=== PATIENT | female | born 1955 | race Caucasian/White ===

== ENCOUNTER 2023-04-01 13:10 | Emergency (ER) | payer OTHER ==
--- OUTSIDE RECORDS SUMMARY | 2023-04-01 13:15 | XMS REPORT | Continuity of Care Document ---
:[address] [facility] t Address [address] [address] Care Team Providers Name Role Phone [email or web address] Attending Clinician Unavailable [email or web address] Admitting Clinician Unavailable Payers Payer Name Policy Type Policy Number Effective Date Expiration Date Summer larson MEDICARE [place]: [id number] 2020 [employer] 00:00:00 Content Syndicate: [employer] [id number] [employer] (MEDICARE SUPPLEMENT) Problems This patient has no known problems. Allergies, Adverse Reactions, Alerts This patient has no known allergies or adverse reactions. Medications This patient has no known medications. Procedures This patient has no known procedures. Encounters Start End Encounter Admission Attending Care Care Encounter Source Date/Time Date/Time Type Type Clinicians Facility Department ID 2022-10-27 2022-10-27 Outpatient YULI_VALENTINOWS PRIV PRIV [id number] [facility] 00:00:00 00:00:00 _aJcy [id number] Medi lan Results This patient has no known results.
[2023-04-01] MEDS ORDERED: NA CHLORIDE 0.9% 1,000 ML ONE ×2 (13:35→16:55)
[2023-04-01 13:38] LABS: Absolute Lymphocytes (CBC) 0.9 K/uL (0.7-4.9); Hematocrit 40.5 % (36.0-45.0); Lymphocytes % 21.3 % (15.3-44.8); MCV 94.3 fL (80-100); MPV 7.9 fL (7.6-11.3); RBC Red Blood Cell Count 4.29 M/uL (3.86-4.86)
--- NOTE | 2023-04-01 13:47 | RAD REPORT ---
EXAM DESCRIPTION: CT - Head Brain Wo Cont - 04/01/2023 1:36 pm CLINICAL HISTORY: HEADACHE Headache, drowsiness COMPARISON: No comparisons TECHNIQUE: All CT scans are performed using dose optimization technique as appropriate and may inclu de automated exposure control or mA/KV adjustment according to patient size. FINDINGS: No intracranial hemorrhage, hydrocephalus or extra-axial fluid collection.Mild brain atrop hy.No areas of brain edema or evidence of midline shift. The paranasal sinuses and mastoids are clear. The calvarium is intact. IMPRESSION: No acute intracranial abnormality.
[2023-04-01 13:48] LABS: Protime INR 0.97
[2023-04-01 13:50] LABS: Specific Gravity 1.006 (1.005-1.030); Urine Bilirubin NEGATIVE (Negative); Urine Blood Negative (Negative); Urine Clarity Clear (Clear); Urine Color Colorless (Yellow); Urine Glucose NEGATIVE (Negative); Urine Protein NEGATIVE (Negative); Urine Urobilinogen Normal (Normal)
[2023-04-01 13:57] LABS: Albumin 3.8 g/dL (3.4-5.0); Bilirubin Direct 0.2 mg/dL (0-0.2); Bilirubin Indirect, Calculated 0.6 mg/dL (0.2-0.8); Bilirubin Total 0.8 mg/dL (0.2-1.0); Magnesium 1.9 mg/dL (1.6-2.4); Potassium 3.8 mEq/L (3.5-5.1); Protein, Total 7.6 g/dL (6.4-8.2); Troponin High Sensitivity 3.4 pg/mL (<58.9)
[2023-04-01] MEDS ORDERED: FOLIC ACID 5 MG/ML VIAL ONE (14:09)
--- NOTE | 2023-04-01 14:22 | RAD REPORT ---
EXAM DESCRIPTION: RAD - Chest Single View - 04/01/2023 2:10 pm CLINICAL HISTORY: CHEST PAIN Chest pain. COMPARISON: No comparisons FINDINGS: Portable technique limits examination quality. The lungs are grossly clear. The heart is normal in size. No displaced fractures. IMPRESSION: No acute intrathoracic process suspected.
--- NOTE | 2023-04-01 15:09 | RAD REPORT ---
EXAM DESCRIPTION: US - Extrem Venous W Compress Agusto - 04/01/2023 3:01 pm CLINICAL HISTORY: PAIN Bilateral leg edema and swelling. COMPARISON: No comparisons TECHNIQUE: Real-time sonographic interrogation of the left and right lower extremity deep venous sys tems was performed. FINDINGS: Normal compressibility, flow augmentation, phasic flow and spontaneous flow is identified in both the left and right lower extremity deep venous systems. IMPRESSION: No sonographic evidence of left or right lower extremity deep venous thrombosis.
--- NOTE | 2023-04-01 15:14 | RAD REPORT ---
EXAM DESCRIPTION: US - CP - 04/01/2023 2:52 pm CLINICAL HISTORY: DIZZINESS Headache, drowsiness COMPARISON: No comparisons TECHNIQUE: Real-time sonographic evaluation of both carotid systems was performed. Doppler interroga tion was performed with waveform tracing bilaterally. FINDINGS: Normal high resistance waveforms are noted in both external carotid arteries. The common c arotid arteries and internal carotid arteries show normal low resistance waveforms. No significant plaque formation is seen. Peak systolic and end diastolic velocity values and the ICA/ CCA ratios are in the non-hemodynamically significant range. Antegrade flow seen in both vertebral arteries. IMPRESSION: No significant atherosclerotic changes noted. No evidence of a hemodynamically significant stenosis.
--- NOTE | 2023-04-01 15:28 | RAD REPORT ---
EXAM DESCRIPTION: CT - Chest For Pe Angio - 04/01/2023 3:11 pm CLINICAL HISTORY: Chest pain. DYSPNEA COMPARISON: No comparisons TECHNIQUE: CT angiogram of the pulmonary arteries was performed with MIP. All CT scans are performed using dose optimization technique as appropriate and may include automated exposure control or mA/KV adjustment according to patient size. FINDINGS: No evidence of pulmonary thromboembolism. No acute aortic finding demonstrated. The lungs are clear. No significant pericardial or pleural fluid. No concerning bony finding. Several low-density left hepatic lesions, largest measuring 17 mm. These are incompletely assessed on this study. Cholecystectomy clips. IMPRESSION: No evidence of pulmonary thromboembolism. No acute lung findings. Indeterminate liver lesions as detailed. Nonemergent MRI liver protocol recommended for follow-up.
--- NOTE | 2023-04-01 16:01 | RAD REPORT ---
EXAM DESCRIPTION: MRI - Brain Wo Cont - 04/01/2023 3:44 pm CLINICAL HISTORY: DIZZINESS Headache, drowsiness COMPARISON: Head Brain Wo Cont dated 04/01/2023 TECHNIQUE: Multi-sequence, multiplanar MR imaging of the brain was performed without contrast. FINDINGS: No intracranial hemorrhage, hydrocephalus or extra-axial fluid collections.Mild periventri cular and deep white matter chronic microvascular ischemic changes. No edema or shift of midline stru ctures. No findings to suspect brain mass. DWI is negative for acute CVA. Midline structures are normally formed. Mastoid air cells and paranasal sinuses are clear. IMPRESSION: Negative for acute CVA or other acute intracranial finding.
--- NOTE | 2023-04-01 16:27 | EDPHYS ---
Physician Documentation [facility] Name: Hailey Agrawal Age: 67 yrs Sex: Female : 1955 Arrival Date: 04/01/2023 Time: 13:10 Bed 19 Private MD: Roland Jay T ED Physician Jerome Martins HPI: 04/01 14:22 This 67 yrs old Female presents to ER via Ambulatory with complaints of angel Dizziness, Headache. 14:22 The patient presents with dizziness, feeling faint, generalized weakness, angel lightheadedness. Historical: - Allergies: 13:23 Morphine; ld1 - Immunization history:: Adult Immunizations up to date. - Social history:: Smoking status: Patient denies any tobacco usage or history of. Patient/guardian denies using alcohol. ROS: 14:23 Constitutional: Negative for fever, chills, and weight loss, Eyes: Negative for injury, angel pain, redness, and discharge, ENT: Negative for injury, pain, and discharge, Neck: Negative for injury, pain, and swelling, Cardiovascular: Negative for chest pain, palpitations, and edema, Abdomen/GI: Negative for abdominal pain, nausea, vomiting, diarrhea, and constipation, Back: Negative for injury and pain, : Negative for injury, bleeding, discharge, and swelling, MS/Extremity: Negative for injury and deformity, Skin: Negative for injury, rash, and discoloration, Psych: Negative for depression, anxiety, suicide ideation, homicidal ideation, and hallucinations, Allergy/Immunology: Negative for hives, rash, and allergies, Endocrine: Negative for neck swelling, polydipsia, polyuria, polyphagia, and marked weight changes, Hematologic/Lymphatic: Negative for swollen nodes, abnormal bleeding, and unusual bruising. 14:23 Respiratory: Positive for cough, shortness of breath, at rest. 14:23 Neuro: Positive for dizziness, weakness. Exam: 14:23 Constitutional: This is a well developed, well nourished patient who is awake, alert, angel and in no acute distress. Head/Face: Normocephalic, atraumatic. Eyes: Pupils equal round and reactive to light, extra-ocular motions intact. Lids and lashes normal. Conjunctiva and sclera are non-icteric and not injected. Cornea within normal limits. Periorbital areas with no swelling, redness, or edema. ENT: Nares patent. No nasal discharge, no septal abnormalities noted. Tympanic membranes are normal and external auditory canals are clear. Oropharynx with no redness, swelling, or masses, exudates, or evidence of obstruction, uvula midline. Mucous membranes moist. Neck: Trachea midline, no thyromegaly or masses palpated, and no cervical lymphadenopathy. Supple, full range of motion without nuchal rigidity, or vertebral point tenderness. No Meningismus. Chest/axilla: Normal chest wall appearance and motion. Nontender with no deformity. No lesions are appreciated. Cardiovascular: Regular rate and rhythm with a normal S1 and S2. No gallops, murmurs, or rubs. Normal PMI, no JVD. No pulse deficits. Respiratory: Lungs have equal breath sounds bilaterally, clear to auscultation and percussion. No rales, rhonchi or wheezes noted. No increased work of breathing, no retractions or nasal flaring. Abdomen/GI: Soft, non-tender, with normal bowel sounds. No distension or tympany. No guarding or rebound. No evidence of tenderness throughout. Back: No spinal tenderness. No costovertebral tenderness. Full range of motion. Female : Normal external genitalia. Skin: Warm, dry with normal turgor. Normal color with no rashes, no lesions, and no evidence of cellulitis. MS/ Extremity: Pulses equal, no cyanosis. Neurovascular intact. Full, normal range of motion. Neuro: Awake and alert, GCS 15, oriented to person, place, time, and situation. Cranial nerves II-XII grossly intact. Motor strength 5/5 in all extremities. Sensory grossly intact. Cerebellar exam normal. Normal gait. Psych: Awake, alert, with orientation to person, place and time. Behavior, mood, and affect are within normal limits. 14:23 ECG was reviewed by the Attending Physician. Vital Signs: 13:21 BP 140 / 77; Pulse 87; Resp 20; Temp 98(O); Pulse Ox 100% on R/A; Weight 70.76 kg; me1 Height 5 ft. 6 in. ; Pain 6/10; 13:23 BP 140 / 77; Pulse 87; Resp 20; Temp 98; Pulse Ox 100% ; Weight 70.76 kg; Height 5 ft. me1 6 in. ; Pain 6/10; 16:26 BP 132 / 70 LA Supine (auto/reg); Pulse 71 MON; em1 16:29 BP 137 / 71 LA Sitting (auto/reg); Pulse 69 MON; em1 16:32 BP 146 / 85 LA Standing (auto/reg); Pulse 90 MON; em1 17:43 BP 126 / 75; Pulse 74; Resp 17; Pulse Ox 100% on R/A; ld1 13:23 Body Mass Index 25.18 (70.76 kg, 167.64 cm) me1 13:21 Pain Scale: Adult me1 13:23 Pain Scale: Adult me1 MDM: 13:13 Patient medically screened. angel 14:31 Differential diagnosis: Anemia Anxiety Reaction CHF exacerbation, Myocardial Infarction angel pneumonia, pulmonary edema, Pulmonary Embolism Unstable Angina. Antibiotic administration: Not indicated. Differential Diagnosis altered mental status. Differential diagnosis: cardiac arrhythmia, emotional response, GI bleed, idiopathic syncope, transient ischemic attack, vasovagal episode, cardiac arrhythmia, generalized weakness, GI bleed, hypovolemia, near-syncope, syncope, TIA, vertigo. Immunization status: Pneumococcal vaccine: within last 5 years. Influenza vaccine: within last 5 years. Data reviewed: vital signs, nurses notes, lab test result(s), EKG, radiologic studies, CT scan, doppler, MRI, plain films. Consideration of Admission/Observation Escalation of care including admission/observation considered. I considered the following discharge prescriptions or medication management in the emergency department Medications were administered in the Emergency Department. See MAR. Independent interpretation of the following test(s) in the Emergency Department EKG: See my EKG interpretation above. Test considered but Not performed: Ultrasound NO ABD USG. Historians other than the Patient: Spouse/Significant Other: BLADE, WELL INFORMED. Care significantly affected by the following chronic conditions: Hypertension. 04/01 13:17 Order name: Basic Metabolic Panel; Complete Time: 14:40 [facility] 04/01 13:17 Order name: CBC with Diff; Complete Time: 13:54 [facility] 04/01 13:17 Order name: LFT's; Complete Time: 14:40 [facility] 04/01 13:17 Order name: Magnesium; Complete Time: 14:40 [facility] 04/01 13:17 Order name: NT PRO-BNP; Complete Time: 14:40 [facility] 04/01 13:17 Order name: PT-INR; Complete Time: 13:54 [facility] 04/01 13:17 Order name: Troponin HS; Complete Time: 14:40 [facility] 04/01 13:17 Order name: Urinalysis w/ reflexes; Complete Time: 13:54 [facility] 04/01 13:17 Order name: Lipase; Complete Time: 14:40 [facility] 04/01 13:17 Order name: D-Dimer; Complete Time: 13:54 [facility] 04/01 13:54 Order name: TSH; Complete Time: 14:40 angel 04/01 16:57 Order name: T3 Free ld1 04/01 16:57 Order name: T4 Free ld1 04/01 13:17 Order name: XRAY Chest (1 view); Complete Time: 14:40 angel 04/01 13:17 Order name: CT Head Brain wo Cont; Complete Time: 13:54 angel 04/01 13:54 Order name: US Carotid Artery Bilateral; Complete Time: 15:22 angel 04/01 13:55 Order name: US Extremity Venous W Compression Agusto; Complete Time: 15:22 angel 04/01 13:55 Order name: CT Chest For PE Angio; Complete Time: 15:34 [facility] 04/01 14:45 Order name: Brain Wo Cont; Complete Time: 16:10 EDMS 04/01 13:17 Order name: EKG; Complete Time: 13:18 [facility] 04/01 13:17 Order name: Cardiac monitoring; Complete Time: 13:21 [facility] 04/01 13:17 Order name: EKG - Nurse/Tech; Complete Time: 13:21 [facility] 04/01 13:17 Order name: IV Saline Lock; Complete Time: 13:21 [facility] 04/01 13:17 Order name: Labs collected and sent; Complete Time: 13:21 [facility] 04/01 13:17 Order name: O2 Per Protocol; Complete Time: 13:21 [facility] 04/01 13:17 Order name: O2 Sat Monitoring; Complete Time: 13:21 [facility] 04/01 15:50 Order name: Orthostatics; Complete Time: 16:33 [facility] EC:23 Rate is 75 beats/min. Rhythm is regular. QRS [place] is Normal. MO interval is normal. QRS angel interval is normal. QT interval is normal. No Q waves. T waves are Normal. No ST changes noted. Clinical impression: Normal ECG and No evidence of ischemia. Interpreted by me. Reviewed by me. Administered Medications: 13:49 Drug: NS 0.9% IV 500 ml Route: IV; Rate: bolus; Site: right antecubital; ll1 13:58 Drug: NS 0.9% IV 500 ml Route: IV; Rate: bolus; Site: right antecubital; ll1 14:03 Drug: foLIC Acid IVPB 1 mg Route: IVPB; Site: right antecubital; ll1 16:17 Drug: NS 0.9% IV 1000 ml Route: IV; Rate: 125 ml/hr; Site: right antecubital; ld1 16:36 Drug: Aspirin PO Chewable Tablet 81 mg Route: PO; ld1 16:47 Drug: NS 0.9% IV 1000 ml Route: IV; Rate: 1 bolus; Site: right antecubital; ld1 Disposition Summary: 04/01/23 16:27 Discharge Ordered Location: Home angel Problem: new angel Symptoms: have improved angel Condition: Stable angel Diagnosis - Dizziness and giddiness angel - Weakness angel - Abnormal finding of blood chemistry, unspecified - LOW TSH angel Followup: angel - With: - When: 2 - 3 days - Reason: Recheck today's complaints, Continuance of care, Re-evaluation by your physician Followup: angel - With: - When: 2 - 3 days - Reason: Recheck today's complaints, Continuance of care, Re-evaluation by your physician Discharge Instructions: - Discharge Summary Sheet angel - Dizziness angel - Weakness angel - Near-Syncope, [id number] angel - Weakness, [id number] angel - Aspirin and Your Heart angel - Dizziness, [id number] angel Forms: - Medication Reconciliation Form angel - Thank You Letter angel - Antibiotic Education angel - Prescription Opioid Use angel - Patient Portal Instructions angel Prescriptions: - ondansetron 4 mg Oral Tablet,disintegrating - take 1 tablet by ORAL route every 6-8 hours for 5 days; 24 tablet; Refills: 0, angel Product Selection Permitted Signatures: Dispatcher [employer] Jerome Landa MD MD cha Lewis, Lynsay, RN RN ll1 Candis Arango RN RN ld1 Corrections: (The following items were deleted from the chart) 14:45 13:54 MR STROKE PROTOCOL+MRI.RAD.BRZ ordered. EDMS MIGUEL
--- NOTE | 2023-04-01 16:27 | ER ---
Nurse's Notes [facility] Name: Hailey Agrawal Age: 67 yrs Sex: Female : 1955 Arrival Date: 04/01/2023 Time: 13:10 Bed 19 Private MD: Roland Jay T Diagnosis: Dizziness and giddiness;Weakness;Abnormal finding of blood chemistry, unspecified-LOW TSH Presentation: 04/01 13:21 Chief complaint: Patient states: headache, dizziness, bilateral lower face numbness. me1 Coronavirus screen: At this time, the client does not indicate any symptoms associated with coronavirus-19. Ebola Screen: No symptoms or risks identified at this time. Initial Sepsis Screen: Does the patient meet any 2 criteria? No. Patient's initial sepsis screen is negative. Does the patient have a suspected source of infection? No. Patient's initial sepsis screen is negative. Risk Assessment: Do you want to hurt yourself or someone else? Patient reports no desire to harm self or others. Onset of symptoms was April 01, 2023 at 08:30. 13:21 Method Of Arrival: Ambulatory [facility] 13:21 Acuity: LAMONTE 3 me1 Triage Assessment: 13:21 Headache History: Denies prior headaches. General: Appears uncomfortable, well groomed, me1 well developed, well nourished, Behavior is cooperative, appropriate for age, anxious, restless, Reports headache, dizziness, bilateral lower face numbness that all started this morning at 08:30. Pain: Complains of pain in headache Pain does not radiate. Pain currently is 6 out of 10 on a pain scale. Quality of pain is described as aching, Pain began 08:30 this morning. Also complains of dizziness, bilateral lower face numbness. Neuro: Level of Consciousness is awake, alert, obeys commands, Oriented to person, place, time, situation. Cardiovascular: Capillary refill < 3 seconds Patient's skin is warm and dry. Respiratory: Respiratory effort is even, unlabored, Respiratory pattern is regular, symmetrical. Historical: - Allergies: 13: Morphine; ld1 - Immunization history:: Adult Immunizations up to date. - Social history:: Smoking status: Patient denies any tobacco usage or history of. Patient/guardian denies using alcohol. Screenin: [facility] ED Fall Risk Assessment (Adult) History of falling in the last 3 months, ld1 including since admission No falls in past 3 months (0 pts). Abuse screen: Denies threats or abuse. Denies injuries from another. Nutritional screening: No deficits noted. Tuberculosis screening: No symptoms or risk factors identified. Assessment: 13:22 General: Appears in no apparent distress. comfortable, Behavior is cooperative, ld1 appropriate for age, anxious. Pain: Denies pain. Neuro: Level of Consciousness is awake, alert, obeys commands, Oriented to person, place, time, situation. Cardiovascular: Capillary refill < 3 seconds Patient's skin is warm and dry. Rhythm is sinus rhythm. Respiratory: Reports shortness of breath Airway is patent Respiratory effort is even, unlabored, the patient has mild shortness of breath. GI: Abdomen is flat, non-distended. : No signs and/or symptoms were reported regarding the genitourinary system. EENT: No signs and/or symptoms were reported regarding the EENT system. Derm: No signs and/or symptoms reported regarding the dermatologic system. Musculoskeletal: No signs and/or symptoms reported regarding the musculoskeletal system. 14:03 Reassessment: No changes from previously documented assessment. Patient and/or family ll1 updated on plan of care and expected duration. Pain level reassessed. Patient is alert, oriented x 3, equal unlabored respirations, skin warm/dry/pink. 16:55 Reassessment: Patient appears in no apparent distress at this time. No changes from ld1 previously documented assessment. Patient and/or family updated on plan of care and expected duration. Pain level reassessed. 17:43 Reassessment: Patient appears in no apparent distress at this time. No changes from ld1 previously documented assessment. Patient and/or family updated on plan of care and expected duration. Pain level reassessed. Vital Signs: 13:21 BP 140 / 77; Pulse 87; Resp 20; Temp 98(O); Pulse Ox 100% on R/A; Weight 70.76 kg; me1 Height 5 ft. 6 in. ; Pain 6/10; 13:23 BP 140 / 77; Pulse 87; Resp 20; Temp 98; Pulse Ox 100% ; Weight 70.76 kg; Height 5 ft. me1 6 in. ; Pain 6/10; 16:26 BP 132 / 70 LA Supine (auto/reg); Pulse 71 MON; em1 16:29 BP 137 / 71 LA Sitting (auto/reg); Pulse 69 MON; em1 16:32 BP 146 / 85 LA Standing (auto/reg); Pulse 90 MON; em1 17:43 BP 126 / 75; Pulse 74; Resp 17; Pulse Ox 100% on R/A; ld1 13:23 Body Mass Index 25.18 (70.76 kg, 167.64 cm) me1 13:21 Pain Scale: Adult me1 13:23 Pain Scale: Adult me1 ED Course: 13:11 Patient arrived in ED. mr 13:12 Jerome Martins MD is Attending Physician. angel 13:12 Roland Jay MD is Private Physician. mr 13:14 Candis Arango, GRAZYNA is Primary Nurse. ld1 13:22 Inserted saline lock: 20 gauge in right antecubital area, using aseptic technique. ld1 Blood collected. 13:23 No provider procedures requiring assistance completed. Inserted. ld1 13:23 Patient has correct armband on for positive identification. Placed in gown. Bed in low ld1 position. Call light in reach. Side rails up X2. media monitor on. Pulse ox on. NIBP on. Door closed. Noise minimized. Warm blanket given. 13:24 Triage completed. me1 13:38 CT Head Brain wo Cont In Process Unspecified. EDMS 14:11 XRAY Chest (1 view) In Process Unspecified. EDMS 14:53 US Carotid Artery Bilateral In Process Unspecified. EDMS 15:03 US Extremity Venous W Compression Agusto In Process Unspecified. EDMS 15:13 CT Chest For PE Angio In Process Unspecified. EDMS 15:36 Brain Wo Cont In Process Unspecified. EDMS 16:27 Roland Jay MD is Referral Physician. angel 16:27 Orlando Williamson MD is Referral Physician. angel 18:14 IV discontinued, intact, bleeding controlled, No redness/swelling at site. ld1 18:14 Arm band placed on right wrist. ld1 Administered Medications: 13:49 Drug: NS 0.9% IV 500 ml Route: IV; Rate: bolus; Site: right antecubital; ll1 13:58 Drug: NS 0.9% IV 500 ml Route: IV; Rate: bolus; Site: right antecubital; ll1 14:03 Drug: foLIC Acid IVPB 1 mg Route: IVPB; Site: right antecubital; ll1 16:17 Drug: NS 0.9% IV 1000 ml Route: IV; Rate: 125 ml/hr; Site: right antecubital; ld1 16:36 Drug: Aspirin PO Chewable Tablet 81 mg Route: PO; ld1 16:47 Drug: NS 0.9% IV 1000 ml Route: IV; Rate: 1 bolus; Site: right antecubital; ld1 Medication: 18:14 VIS not applicable for this client. ld1 Outcome: 16:27 Discharge ordered by . angel 18:14 Discharged to home ambulatory, with family. ld1 18:14 Condition: stable 18:14 Discharge instructions given to patient, Instructed on discharge instructions, follow up and referral plans. medication usage, Demonstrated understanding of instructions, follow-up care, medications, Prescriptions given X 1. 18:14 Patient left the ED. ld1 Signatures: Dispatcher [employer] EDJerome Mijares MD MD cha Rivera, Nickie Cordero, Jeremiah em1 Joaquín Love RN RN 1 Candis Arango RN RN ld1 Ainsley Bell, GRAZYNA RN me1 Corrections: (The following items were deleted from the chart) 13:28 13:23 BP 140 / 77; Pain 0/10, Adult; ld1 me1
[2023-04-01] MEDS ORDERED: ASPIRIN 81 MG CHEWABLE TABLET ONE (16:42)
[2023-04-01 17:35] LABS: T3 Free 3.16 pg/mL (2.18-3.98)
[2023-04-01 18:19] VITALS: TEMP 98; O2SAT 100
[2023-04-01 18:26] VITALS: BP 126/75
== END 2023-04-01 18:14 | disposition home or self-care (01) ==
LOC: ER 13:10
DX: R42 Dizziness and giddiness (principal); R53.1 Weakness; R79.89 Other specified abnormal findings of blood chemistry; Z88.5 Allergy status to narcotic agent
CPT/HCPCS: 85025; 80048; 36415; 83735; 85610; 85379; 80076; 84443; 81003; 84484; 84481; 84439; 83690; 83880; 70450; 71275; 71045; 93880; 93970; 70551; Q9967; J7030 ×2; 93005